=== PATIENT | female | born 1975 | race Caucasian/White ===

== ENCOUNTER 2024-07-28 14:41 | Observation (INO) | payer OTHER ==
[~2024-07-28] VITALS: Ht 172.7 cm; Wt 70.3 kg
--- NOTE | 2024-07-28 08:45 | NUR ---
ASSESSMENT DONE. WATER REFRESHED. CALL LIGHT WITHIN REACH. pt ABLE TO TAKE THE PO POTASSIUM. pt REQUESTED BROTH TO DRINK. BROTH PROVIDED. NO NEW DEFICITS. pt A&O X4. pt DENIES ANY OTHER NEEDS AT THIS TIME.
[2024-07-28] MEDS ORDERED: IBLOOD GLUCOSE TEST STRIP 1 EA TEST XX ONE (15:00)
[2024-07-28 15:29] LABS: BASOPHILS 1.1 % (0-2); EOSINOPHILS 2.3 % (0-6); HEMATOCRIT 40.9 % (35.0-50.0); HEMOGLOBIN 13.9 g/dL (12.0-18.0); LYMPHOCYTES 32.7 % (24-44); MCH 31.4 (27-36); MCHC 33.9 g/dl (30-36); MCV 92.6 fl (81-99); MONOCYTES 8.4 % (0-12); NEUTROPHILS 55.5 % (39-80); PLATELET COUNT 342 K/uL (140-440); RBC 4.42 M/ul (4.3-5.7); RDW 13.5 (10.5-15.0)
[2024-07-28] MEDS ORDERED: ondansetron HCL 4 MG/2 ML VIAL IV ONE ×3 (15:30→18:45)
[2024-07-28 15:44] LABS: ALBUMIN 4.4 g/dL (3.4-5.0); ALBUMIN/GLOBULIN RATIO 1.1 (1.1-2.4); ANION GAP 17.3 (7-21); BILIRUBIN, TOTAL 0.8 ng/dL (0.2-1.0); BUN/CREATININE RATIO 8.57 (6.0-28.6); CALCIUM 9.9 mg/dL (8.5-10.1); CREATININE, SERUM 1.05 mg/dL (0.55-1.02); POTASSIUM 3.3 mmol/L (3.5-5.1); PROTEIN, TOTAL 8.4 g/dL (6.4-8.2)
[2024-07-28] MEDS ORDERED: HYDROmorphone HCL 1 MG/ML SYR IV ONE (15:45)
[2024-07-28 15:46] LABS: PARTIAL THROMBOPLASTIN TIME 23.8 Sec (22.9-41.3)
[2024-07-28 15:47] LABS: INR 0.97 (0.80-1.30); PROTIME 12.2 Sec (11.2-14.2)
[2024-07-28 16:08] LABS: AMPHETAMINES, URINE NEGATIVE (NEGATIVE); BARBITURATES, URINE NEGATIVE (NEGATIVE); BENZODIAZEPINE, URINE NEGATIVE (NEGATIVE); BUPRENORPHINE, URINE NEGATIVE (NEGATIVE); CANNABINOID, URINE POSITIVE (NEGATIVE); COCAINE, URINE NEGATIVE (NEGATIVE); ECSTASY, URINE NEGATIVE (NEGATIVE); FENTANYL, URINE NEGATIVE (NEGATIVE); METHADONE, URINE NEGATIVE (NEGATIVE); OPIATES, URINE NEGATIVE (NEGATIVE); OXYCODONE, URINE NEGATIVE (NEGATIVE); PHENCYCLIDINE, URINE NEGATIVE (NEGATIVE)
[2024-07-28] MEDS ORDERED: CARVEDILOL25 MG PO (17:59)
[2024-07-28] MEDS ORDERED: TRAZODONE HCL50 MG PO (18:00)
[2024-07-28] MEDS ORDERED: HYDROXYZINE HCL50 MG PO (18:00)
[2024-07-28] MEDS ORDERED: ACETAMINOPHEN 325 MG TAB PO PRN (19:15)
[2024-07-28] MEDS ORDERED: ondansetron HCL 4 MG/2 ML VIAL IV PRN (19:15)
[2024-07-28] MEDS ORDERED: PROCHLORPERAZINE EDISYLATE 10 MG/2 ML VIAL IV PRN (19:15)
--- NOTE | 2024-07-28 19:24 | EKG ---
[facility] [address] [place] [address] Signed Normal sinus rhythm Septal infarct , age undetermined Abnormal ECG No previous ECGs available Confirmed by Belén Li MD () on 07/28/2024 7:24:29 PM Electronically Signed By: BELÉN LI MD 07/28/241923 PATIENT NAME: ABRAHAM MURILLO Electrocardiogram DATE OF : 73 PHYSICIAN: BELÉN LI MD REPORT #: [id number] REPORT IS CONFIDENTIAL AND NOT TO BE RELEASED WITHOUT AUTHORIZATION
[2024-07-28] MEDS ORDERED: POTASSIUM CHLORIDE 10 MEQ/100 ML BAG IV SCH (19:45)
[2024-07-28] MEDS ORDERED: POTASSIUM CHLORIDE 10 MEQ/100 ML BAG IV ONE (19:45)
[2024-07-28] MEDS ORDERED: NALTREXONE HCL50 MG PO (19:48)
[2024-07-28] MEDS ORDERED: VENLAFAXINE HC150 MG PO (19:48)
--- NOTE | 2024-07-28 20:00 | NUR ---
pt ARRIVED TO THE FLOOR VIA STRETCHER. pt ABLE TO TRANSFER TO THE BED BY SBA. REPORT RECEIVED FROM DAPHNIE FRANZ.
[2024-07-28 20:12] VITALS: BP 130/73
--- NOTE | 2024-07-28 20:15 | NUR ---
pt ARRIVED TO MS FLOOR AT THIS TIME, AMBULATED SELF FROM ED STRETCHER TO BED, CALL LIGHT AND PERSONAL BELONGINGS IN REACH. pt ORIENTED TO POC, IV SITE WNL-SALINE LOCKED. ADMISSION COMPLETED, FAMILY AT BEDSIDE. VSS. PRIMARY RN SHANNAN IN ROOM RECEIVING BEDSIDE REPORT AND COMPLETING pt CARES.
[2024-07-28] MEDS ORDERED: POTASSIUM CHLORIDE 10 MEQ TABCR PO ONE (20:30)
--- NOTE | 2024-07-28 20:30 | NUR ---
PHONE CALL PLACED TO . TO SEE IF THE IV POTASSIUM COULD BE CHANGED TO PO POTASSIUM. AND IF THE MD WANTED TO RE-DRAW THE TRIPONIN. MD CHANGED IV TO PO ABX AND REORDERED THE TRIPONIN TO BE DRAWN DURING MORNING LABS.
[2024-07-28 20:45] VITALS: BP 130/73
[2024-07-28] MEDS ORDERED: PANTOPRAZOLE SODIUM 40 MG/10 ML VIAL IV SCH (21:00)
--- NOTE | 2024-07-28 23:05 | NUR ---
pt RESTING IN THE BED WITH EYES CLOSED. RR EVEN AND UNLABORED. CALL LIGHT WITHIN REACH.
[2024-07-29] VITALS (8 sets, daily range): BP systolic 108–149; BP diastolic 65–99
--- NOTE | 2024-07-29 01:03 | NUR ---
Spoke with pt. She denies any symptoms at this time. She would like to go home. Parents are in her room. She plans on going home to [place] with her parents.
--- NOTE | 2024-07-29 01:42 | NUR ---
VITAL SIGNS AND ASSESSMENT DONE. pt RESTING IN THE BED. pt DENIES ANY OTHER NEEDS AT THIS TIME. pt SAT UP TO DRINK WATER.
--- NOTE | 2024-07-29 03:56 | NUR ---
pt RESTING IN THE BED WITH EYES CLOSED. RR EVEN AND UNLABORED. CALL LIGHT WITHIN REACH.
[2024-07-29 05:45] LABS: BASOPHILS 1.1 % (0-2); EOSINOPHILS 2.4 % (0-6); HEMATOCRIT 36.1 % (35.0-50.0); HEMOGLOBIN 12.2 g/dL (12.0-18.0); LYMPHOCYTES 33.8 % (24-44); MCH 31.2 (27-36); MCHC 33.7 g/dl (30-36); MCV 92.4 fl (81-99); MONOCYTES 10.9 % (0-12); NEUTROPHILS 51.8 % (39-80); PLATELET COUNT 266 K/uL (140-440); RBC 3.91 M/ul (4.3-5.7); RDW 13.4 (10.5-15.0)
--- NOTE | 2024-07-29 06:02 | NUR ---
pt RESTED THROUGH OUT THE NIGHT. pt NAUSEA WAS RELEIVED THROUGH OUT THE NIGHT. pt A&0 X4. NO NEW DEFICITS.
[2024-07-29 06:05] LABS: ALBUMIN 3.4 g/dL (3.4-5.0); ALBUMIN/GLOBULIN RATIO 1.1 (1.1-2.4); ANION GAP 14.8 (7-21); BILIRUBIN, TOTAL 0.6 ng/dL (0.2-1.0); BUN/CREATININE RATIO 5.5 (6.0-28.6); CALCIUM 9.1 mg/dL (8.5-10.1); CREATININE, SERUM 1.09 mg/dL (0.55-1.02); MAGNESIUM 2.1 mg/dL (1.8-2.4); PHOSPHORUS, INORGANIC 3.8 mg/dL (2.5-4.9); POTASSIUM 3.8 mmol/L (3.5-5.1); PROTEIN, TOTAL 6.5 g/dL (6.4-8.2)
[2024-07-29 06:10] LABS: CHOLESTEROL/HDL RATIO 2.4
--- NOTE | 2024-07-29 06:21 | NUR ---
CALLED FOR CRITICAL LAB. NEW ORDERS GIVEN. ORDERS VERIFIED WITH REPEAT BACK METHOD.
--- NOTE | 2024-07-29 07:55 | NUR ---
UR CLINICAL REVIEW: [facility] [place]ENT [place]HEMIC [place] [facility] OBS 07/28/24 @ 1915 ORDER MATCHES STATUS WILL SEND CLINICALS VIA RIGHTFAX FOR AUTH. PLAN TO DC TO HOME WHEN STABLE. 07/30/24
--- NOTE | 2024-07-29 08:29 | NUR ---
recieved report from nurse at 0713. pt is currently asleep in bed and even and unlabored breathing noted. no concerns at this time call light within reach
--- NOTE | 2024-07-29 09:41 | NUR ---
PT NOT AVAIALBLE FOR VISIT. PROVIDED PRAYER.
[2024-07-29] MEDS ORDERED: PHARMACY RENAL DOSE ADJUSTMENT 1 DOSE MISC PO SCH (12:00)
[2024-07-29] MEDS ORDERED: PANTOPRAZOLE SO40 MG PO (12:31)
[2024-07-29] MEDS ORDERED: CYCLOBENZAPRINE10 MG PO (12:31)
[2024-07-29] MEDS ORDERED: NUVARING VAGIN1 EACH VAGINAL (12:32)
[2024-07-29] MEDS ORDERED: VITAMIN D31250 MC1 PO (12:32)
[2024-07-29] MEDS ORDERED: MELATONIN5 M2 PO (12:32)
--- NOTE | 2024-07-29 12:33 | NUR ---
MED REC COMPLETE
--- NOTE | 2024-07-29 14:15 | NUR ---
pt is in room resting and talking with dr stallworth about her case. pt had a headache earlier but requested tylenol and pain has subsided. pt was wondering about her bp medicine earlier and talkeed to pharmacy. no concerns at this time and call light within reach
[2024-07-29] MEDS ORDERED: PLAVIX75 MG PO (14:22)
[2024-07-29] MEDS ORDERED: LIPITOR80 MG GT (14:22)
[2024-07-29] MEDS ORDERED: ASPIRIN81 MG PO ×2 (14:23→14:53)
--- NOTE | 2024-07-29 20:34 | EKG ---
[facility] [address] [place] [address] Signed Normal sinus rhythm with sinus arrhythmia Normal ECG When compared with ECG of 28-JUL-2024 15:55, No significant change was found Confirmed by Belén Li MD () on 07/29/2024 8:34:36 PM Electronically Signed By: BELÉN LI MD 07/29/242033 PATIENT NAME: ABRAHAM MURILLO Electrocardiogram DATE OF : 73 PHYSICIAN: BELÉN LI MD REPORT #: [id number] REPORT IS CONFIDENTIAL AND NOT TO BE RELEASED WITHOUT AUTHORIZATION
== END 2024-07-29 15:24 | disposition home or self-care (01) ==
LOC: ED 14:41 → MS 14:43
PROVIDERS: Emergency Medicine; ADMIT Family Medicine; ATTEND Family Medicine
DX: G45.9 Transient cerebral ischemic attack, unspecified (principal); R79.89 Other specified abnormal findings of blood chemistry; E87.6 Hypokalemia; R47.01 Aphasia; I10 Essential (primary) hypertension; Z88.2 Allergy status to sulfonamides; Z79.899 Other long term (current) drug therapy
CPT/HCPCS: 36415; 70450; 70496; 70498; 70553; 71045; 80053; 80061; 80307; 83036; 83735; 84100; 84484; 85025; 85610; 85730; 92523; 93005; 93010; 93306; 96375; 97161; 97165; 99285-25; A9270; A9579; G0378; J0780; J1170; J2405; J2470; J3480; Q9967

== ENCOUNTER 2025-02-20 11:49 | Observation (INO) | payer OTHER ==
[~2025-02-20] VITALS: Ht 172.7 cm; Wt 70.7 kg
[~2025-02-20 11:49] MED LIST: ASPIRIN81 MG PO; CARVEDILOL25 MG PO; CYCLOBENZAPRINE10 MG PO; HYDROXYZINE HCL50 MG PO; LIPITOR80 MG GT; MELATONIN5 M2 PO; NALTREXONE HCL50 MG PO; NUVARING VAGIN1 EACH VAGINAL; PANTOPRAZOLE SO40 MG PO; PLAVIX75 MG PO; TRAZODONE HCL50 MG PO; VENLAFAXINE HC150 MG PO; VITAMIN D31250 MC1 PO
[2025-02-20] MEDS ORDERED: SUCRALFATE1 GM PO (12:07)
[2025-02-20 12:14] LABS: BASOPHILS 1.2 % (0-2); EOSINOPHILS 0.3 % (0-6); HEMATOCRIT 42.8 % (35.0-50.0); HEMOGLOBIN 14.6 g/dL (12.0-18.0); LYMPHOCYTES 21.9 % (24-44); MCH 31.1 (27-36); MCHC 34.1 g/dl (30-36); MCV 91.3 fl (81-99); MONOCYTES 5.5 % (0-12); NEUTROPHILS 71.1 % (39-80); PLATELET COUNT 410 K/uL (140-440); RBC 4.69 M/ul (4.3-5.7); RDW 13.9 (10.5-15.0)
[2025-02-20 12:23] LABS: ALBUMIN/GLOBULIN RATIO 1.03 (1.1-2.4); ANION GAP 18.5 (7-21); BILIRUBIN, TOTAL 0.8 mg/dL (0.2-1.0); BUN/CREATININE RATIO 7.69 (6.0-28.6); CALCIUM 9.5 mg/dL (8.5-10.1); CREATININE, SERUM 1.04 mg/dL (0.55-1.02); POTASSIUM 3.5 mmol/L (3.5-5.1); PROTEIN, TOTAL 7.9 g/dL (6.4-8.2)
[2025-02-20] MEDS ORDERED: ACETAMINOPHEN 325 MG TAB PO PRN (14:30)
[2025-02-20] MEDS ORDERED: ondansetron HCL 4 MG/2 ML VIAL IV PRN (14:30)
[2025-02-20 15:02] VITALS: BP 152/78
--- NOTE | 2025-02-20 15:15 | NUR ---
ADMISSION STARTED. TELE #7 IS ON. PAIN REPORTS A HEADACHE /. PATIENT REPORTS MINOR NUMBNESS IN BILATERAL FINGERTIPS, LEFT LUTHERAN PAIN. RESOLVED NUMBNESS AROUND MOUTH.
[2025-02-20] MEDS ORDERED: ATORVASTATIN 40 MG TAB PO SCH (15:27)
--- NOTE | 2025-02-20 15:30 | NUR ---
REPORT RECEIVED FROM OSEI SANTOS.
--- NOTE | 2025-02-20 15:47 | NUR ---
PATIENT IS LYING IN BED WITH EYES OPEN AND RESPIRATIONS ARE EVEN AND UNLABORED. PATIENT IS GETTING AN ECHO NOW. PATIENT STATED NO FURTHER NEEDS. CALL LIGHT AND PERSONAL BELONGINGS ARE WITHIN REACH.
[2025-02-20] MEDS ORDERED: SUCRALFATE 1 GM TAB PO SCH ×2 (16:00)
--- NOTE | 2025-02-20 16:05 | NUR ---
PATIENT IS LYING IN BED ON HER LEFT SIDE. ECHO IS IN THE ROOM AT THIS TIME. PATIENT WITH THREE VISITORS IN THE ROOM. CALL LIGHT AND PERSONAL BELONGINGS ARE WITHIN REACH.
--- NOTE | 2025-02-20 17:20 | NUR ---
ADMISSION COMPLETE AND DOCUMENTED IN THE CHART. PATIENT FAMILY MEMBERS ARE IN AND OUT OF THE ROOM. FULL ASSESSMENT COMPLETE AND DOCUMENTED IN THE CHART. PATIENT IS ALERT AND ORIENTED TIMES FOUR. NIH COMPLETE AND IT WAS ZERO. PATIENT IS A SBA. IV SITE FLUSHED WITH 10 ML NORMAL SALINE AND IS SALINE LOCKED. PATIENT IS ON A REGULAR DIET AND BOWEL TONES ARE ACTIVE IN ALL FOUR QUADRANTS. PATIENT WITH NO COMPLAINTS OF NAUSEA. PATIENT IS ON ROOM AIR AND BOWEL TONES ARE ACTIVE IN ALL FOUR QUADRANTS. CARDIAC WITH NORMAL S1 AND S2 ON AUSCULTATION. PATIENT IS ON TELEMETRY NUMBER 7 AND IS IN NORMAL SINUS RHYTHM. RADIAL AND PEDAL PULSES ARE STRONG BILATERALLY. NO EDEMA NOTED. BLE WITH CAPILLARY REFILL GREATER THAN 3 SECONDS. PATIENT WITH MILD PAIN IN THE HEAD AFTER RECEIVING TYLENOL FROM OSEI SANTOS. PATIENT STATED NO FURTHER NEEDS AT THIS TIME. PATIENT LEFT THE FLOOR FOR IMAGING.
[2025-02-20 17:50] VITALS: BP 147/90
[2025-02-20 17:52] VITALS: BP 147/90
[2025-02-20] MEDS ORDERED: carvediloL 25 MG TAB PO SCH (21:00)
[2025-02-20] MEDS ORDERED: PANTOPRAZOLE SODIUM 40 MG TABEC PO SCH (21:00)
[2025-02-20] MEDS ORDERED: VENLAFAXINE HCL 75 MG CAPCR PO SCH (21:00)
[2025-02-20 21:38] VITALS: BP 143/79
[2025-02-20 21:45] VITALS: BP 143/79
--- NOTE | 2025-02-20 22:13 | NUR ---
Alert and oriented, c/o h/a, medicated with Tylenol, warm pad to neck area. cooperative with assessments. On room air, clear lungs, denies c/o CP or SOB, turns and repositions w/o problems. tolerating sips of fluids only. tele#7 SR
[2025-02-21] VITALS (7 sets, daily range): BP systolic 126–159; BP diastolic 75–97
--- NOTE | 2025-02-21 00:21 | NUR ---
resting, eyes closed, no s/sx distress. respositions self in bed.
--- NOTE | 2025-02-21 01:49 | NUR ---
Resting, awakens easily. no c/o CP tele#[address], turns and repositions self in bed.
--- NOTE | 2025-02-21 02:35 | NUR ---
PT UTILIZES CALL LIGHT, REQUESTS EMESIS BAG. GARAGE DOOR OPENER INSTALLER PROVIDED. WARE CLEANER TO ROOM, PT HAD 400 ML OF EMESIS. PRN ADMINISTERED PT UP TO BATHROOM, VOIDED AND BRUSHED HER TEETH, THEN BACK TO BED. TOLERATED WELL. PT DENIES DIZINESS OR LIGHTHEADEDNESS. PT REPORTS HEADACHE, RATES 6/10, DECLINES PRN, WOULD LIKE TO WAIT AND SEE IF IT GOES AWAY. SHE STATES ACETAMINOPHEN IS NOT HELPFUL FOR HER HEADACHES. WARM BLANKET AND 7UP PROVIDED. PT DENIES FURTHER NEEDS AT THIS TIME. CALL LIGHT IN REACH.
--- NOTE | 2025-02-21 03:26 | NUR ---
resting, turns adn repositions self in bed, on room air, no further episodes of emesis at this time
[2025-02-21 05:26] LABS: BASOPHILS 0.9 % (0-2); EOSINOPHILS 1.6 % (0-6); HEMATOCRIT 38.6 % (35.0-50.0); HEMOGLOBIN 13.2 g/dL (12.0-18.0); LYMPHOCYTES 26.2 % (24-44); MCH 31.4 (27-36); MCHC 34.3 g/dl (30-36); MCV 91.5 fl (81-99); MONOCYTES 9.2 % (0-12); NEUTROPHILS 62.1 % (39-80); PLATELET COUNT 346 K/uL (140-440); RBC 4.21 M/ul (4.3-5.7); RDW 13.9 (10.5-15.0)
[2025-02-21 05:38] LABS: ANION GAP 14.9 (7-21); BUN/CREATININE RATIO 5.15 (6.0-28.6); CALCIUM 8.5 mg/dL (8.5-10.1); CREATININE, SERUM 0.97 mg/dL (0.55-1.02); POTASSIUM 3.9 mmol/L (3.5-5.1)
--- NOTE | 2025-02-21 07:25 | NUR ---
PT TO MRI AT TIME OF SHIFT EXCHANGE
--- NOTE | 2025-02-21 08:35 | NUR ---
PT AWAKE NOW, SITTING UP WITH MORNING MEAL. STATES SHE STILL HAS A HEADACHE AND HOPITALIST IS CONSIDERING WHAT HE CAN GIVE BECAUSE TYLENOL ISN'T WORKING. PT DENIES OTHER NEEDS AT THIS TIME. PERSONAL CARE ITEMS PROVIDED.
[2025-02-21] MEDS ORDERED: ASPIRIN 81 MG CHEW PO SCH (09:00)
[2025-02-21] MEDS ORDERED: CLOPIDOGREL BISULFATE 75 MG TAB PO SCH (09:00)
--- NOTE | 2025-02-21 09:21 | NUR ---
P/T IN TO WORK WITH PT. BED LINENS CHANGED. NEEDED ITEMS TO BEDSIDE WHERE PT RETURNS AFTER P/T. CONTINUES WITH HEADACHE WARM PACK PROVIDED PER REQUEST
[2025-02-21] MEDS ORDERED: TRAMADOL HCL 50 MG TAB PO PRN (09:30)
--- NOTE | 2025-02-21 09:44 | NUR ---
DR CLINE IN TO SEE PT ORDERS GIVEN. FAMILY X2 PRESENT WITH PT AT THIS TIME SHE RESTS IN BED
[2025-02-21] MEDS ORDERED: KETOROLAC TROMETHAMINE 15 MG/ML VIAL IV ONE (09:45)
--- NOTE | 2025-02-21 10:37 | NUR ---
ALERT AND ORIENTED IN BED. STATES SHE LIVES IN HOUSE WITH STAIRS. DRIVES AT BASELINE. NO DME. HAS NO FINANCIAL CONCERNS. SHE PLANS TO DC HOME, WOULD LIKE TO GO HOME TODAY. NO CM NEEDS.
--- NOTE | 2025-02-21 10:53 | NUR ---
UR CLINICAL REVIEW: [facility] [place] RE[facility] OBS FOR TIA WITH NEED FOR FURTHER TESTING [facility] OBS 02/20/25 @ 1429 ORDER MATCHES REG NO AUTH REQ FOR OBS VISIT PER [facility] GUIDELINES DISCHARGE TO HOME ONCE ECHO REPORT IS AVAILABLE ANTICIPATE DISCHARGE TODAY 02/21/25
--- NOTE | 2025-02-21 10:55 | NUR ---
PT CONTINUES RESTING IN BED VISITORS PRESENT. SHE AGREES HER HEADACHE IS STARTING GET BETTER. FRESH H20 TO BEDSIDE. PT DENIES OTHER NEEDS
[2025-02-21] MEDS ORDERED: LIPITOR80 MG PO (11:55)
[2025-02-21] MEDS ORDERED: MELATONIN10 M2 PO (11:57)
[2025-02-21] MEDS ORDERED: VITAMIN D3250 MC1 PO (11:57)
[2025-02-21] MEDS ORDERED: HAIR, SKIN & N1 EACH PO (11:58)
[2025-02-21] MEDS ORDERED: CYCLOBENZAPRINE10 MG PO (11:59)
[2025-02-21] MEDS ORDERED: PHARMACY RENAL DOSE ADJUSTMENT 1 DOSE MISC PO SCH (12:00)
[2025-02-21] MEDS ORDERED: HYDROXYZINE HCL50 MG PO (12:00)
--- NOTE | 2025-02-21 12:00 | NUR ---
MED REC COMPLETE
--- NOTE | 2025-02-21 12:12 | NUR ---
DR CLINE IN TO SEE PT AGREES SHE IS READY TO DC TODAY. PT AGREES. DENIES QUESTIONS OR CONCERNS
--- NOTE | 2025-02-21 12:38 | NUR ---
PT TOLERATES 100% OF NOON MEAL DENIES NAUSEA OR DISCOMFORT. NO CHANGES NEUROLOGICALLY. PT AGREES SHE IS READY TO DC. FRIEND IS PRESENT IN THE ROOM. PT DECLINES NEED OF HELP TO DRESS
--- NOTE | 2025-02-21 13:38 | NUR ---
PATIENT AROUND 0830 THIS MORING GAVE HERSELF A COMPLETE BED BATH. BRUSHED HER TEETH. PATIENT IS INDEPENDENT.
== END 2025-02-21 13:20 | disposition home or self-care (01) ==
LOC: ED 11:49 → MS 11:51
PROVIDERS: Emergency Medicine; ADMIT Student in an Organized Health Care Education/Training Program; ATTEND Student in an Organized Health Care Education/Training Program
DX: R25.8 Other abnormal involuntary movements (principal); I10 Essential (primary) hypertension; G47.00 Insomnia, unspecified; F39 Unspecified mood [affective] disorder; M32.9 Systemic lupus erythematosus, unspecified; G43.909 Migraine, unspecified, not intractable, without status migrainosus; K20.90 Esophagitis, unspecified without bleeding; Z79.02 Long term (current) use of antithrombotics/antiplatelets; Z79.899 Other long term (current) drug therapy; Z88.2 Allergy status to sulfonamides; Z86.73 Personal history of transient ischemic attack (TIA), and cerebral infarction without residual deficits
CPT/HCPCS: 36415; 70450; 70496; 70498; 70553; 80048; 80053; 83735; 85025; 93306; 96374; 96375; 97161; 97165; 99285-25; A9270; A9579; G0378; J1885; J2405

== ENCOUNTER 2025-08-21 20:14 | Emergency (ER) | payer OTHER ==
[~2025-08-21] VITALS: Ht 172.7 cm; Wt 54.5 kg
[~2025-08-21 20:14] MED LIST changes: +HAIR, SKIN & N1 EACH PO; +LIPITOR80 MG PO; +MELATONIN10 M2 PO; +SUCRALFATE1 GM PO; +VITAMIN D3250 MC1 PO
[2025-08-21 20:46] LABS: BASOPHILS 1.1 % (0.1-1.2); EOSINOPHILS 5.4 % (0.7-5.8); LYMPHOCYTES 40.8 % (19.3-51.7); MCH 32.5 PG (25.6-32.2); MCHC 33.8 g/dL (32.2-35.5); MCV 96.3 fL (79.4-94.8); MONOCYTES 7.8 % (4.7-12.5); NEUTROPHILS 44.7 % (34.0-71.1); RBC 3.78 M/uL (3.93-5.22)
[2025-08-21 20:59] LABS: INR 1.01 (0.80-1.30); PROTIME 12.6 Sec (11.2-14.2)
[2025-08-21] MEDS ORDERED: DIPHTH,PERTUSS(ACELL),TET VAC 0.5 ML SYRINGE IM ONE (21:00)
[2025-08-21 21:05] LABS: ALCOHOL, MEDICAL 220.0 ng/dL (<3); ALT (SGPT) 51.0 U/L (14-59); AST (SGOT) 27.0 U/L (15-37); GLOMERULAR FILTRATION RATE,EST 69.0 mL/min (>60); PROTEIN, TOTAL 7.8 g/dL (6.4-8.2); UREA NITROGEN 14.0 mg/dL (7-18)
[2025-08-21 21:42] VITALS: BP 103/81
== END 2025-08-21 21:40 | disposition home or self-care (01) ==
LOC: ED 20:14
PROVIDERS: Family Medicine
DX: S01.111A Laceration without foreign body of right eyelid and periocular area, initial encounter (principal); Z86.73 Personal history of transient ischemic attack (TIA), and cerebral infarction without residual deficits; Z88.2 Allergy status to sulfonamides; Z79.02 Long term (current) use of antithrombotics/antiplatelets; Z79.82 Long term (current) use of aspirin; Z79.899 Other long term (current) drug therapy; V00.131A Fall from skateboard, initial encounter
CPT/HCPCS: 36415; 70450; 70486; 80053; 85025; 85610; 90471; 90715; 99283-25; G0480